=== PATIENT | female | born 1960 | race Caucasian/White ===

== ENCOUNTER → 2020-08-04 | Outpatient (CLI) | payer OTHER ==
[~2020-08-04] MED LIST: CRESTOR5 MG PO; CYCLOBENZAPRINE10 MG PO; GLYBURIDE-METF1 EAC1 PO; LISINOPRIL2.5 MG PO; MELOXICAM15 MG PO; NEURONTIN100 MG PO; PROTONIX40 MG PO; STARLIX 120 MG120 MG PO; ULTRAM50 MG PO
== END ==
LOC: KOH-I 13:35
DX: H53.2 Diplopia (principal); R29.6 Repeated falls; R41.3 Other amnesia; G31.9 Degenerative disease of nervous system, unspecified; R90.82 White matter disease, unspecified
CPT/HCPCS: 70551